=== PATIENT | female | born 1960 | race African-American/Black ===

== ENCOUNTER 2024-06-27 16:45 | Emergency (ER) | payer MEDICAID ==
[~2024-06-27] VITALS: Ht 165.1 cm; Wt 58.0 kg
[2024-06-27 16:47] VITALS: O2SAT 99
[2024-06-27 16:57] VITALS: BP 123/82; PULSE 63; RESP 16; TEMP 98.9; O2SAT 99
[2024-06-27 18:46] LABS: BASOPHILS % 0.9 % (0.0-2.0); EOSINOPHILS % 3.2 % (0.0-5.0); HEMATOCRIT. 48.5 % (36.0-48.0); HEMOGLOBIN. 15.5 g/dL (12.0-16.0); LYMPHOCYTES % 33.9 % (20.0-50.0); MEAN CORPUSCULAR HEMOGLOBIN 26.4 pg (28.0-32.0); MEAN CORPUSCULAR HGB CONC 31.9 g/dL (31.0-37.0); MEAN CORPUSCULAR VOLUME 82.8 fL (81.0-99.0); MEAN PLATELET VOLUME 9.7 fl (7.4-10.4); MONOCYTES % 7.1 % (2.0-8.0); NEUTROPHILS % 54.9 % (40.0-76.0); PLATELET 185 x1000/uL (130-400); RED BLOOD CELL COUNT 5.86 mill/uL (4.2-5.4); RED CELL DISTRIBUTION WIDTH 14.7 % (11.6-14.6); WHITE BLOOD COUNT 4.6 x1000/uL (4.5-11.0)
[2024-06-27 18:47] LABS: CHLORIDE 106 mEq/L (98-107); POTASSIUM 3.7 mEq/L (3.5-5.1); SODIUM 139 mEq/L (136-145)
[2024-06-27 18:48] LABS: CARBON DIOXIDE 28 mEq/L (21-32)
[2024-06-27 18:49] LABS: CALCIUM 10.3 mg/dL (8.7-10.4)
[2024-06-27 18:51] LABS: PROTHROMBIN TIME 10.9 sec (9.6-11.0)
[2024-06-27 18:53] LABS: CREATININE 0.9 mg/dL (0.6-1.0); GLUCOSE 88 mg/dL (70-105)
[2024-06-27 18:54] LABS: UREA NITROGEN BLOOD 11 mg/dL (9-23)
[2024-06-27 18:55] LABS: ALANINE AMINOTRANSFERASE 18 IU/L (10-49); ALBUMIN 5.2 g/dL (3.2-4.8); ASPARTATE AMINOTRANSFERASE 25 IU/L (<34)
[2024-06-27 18:56] LABS: PROTEIN TOTAL 8.1 g/dL (6.0-8.3)
[2024-06-27 19:28] LABS: ERYTHROCYTE SEDIMENTATION RATE 7 mm/hr (0-30)
== END 2024-06-27 21:06 | disposition home or self-care (01) ==
LOC: ER 16:45
DX: D25.9 Leiomyoma of uterus, unspecified (principal); K56.41 Fecal impaction; E78.00 Pure hypercholesterolemia, unspecified
CPT/HCPCS: 36415; 74176; 80053; 85025; 85651; 99284